=== PATIENT | female | born 1975 | race Caucasian/White ===

== ENCOUNTER 2020-12-05 09:26 | Emergency (ER) | payer OTHER ==
[2020-12-05] MEDS ORDERED: CYCLOBENZAPRINE10 MG PO (13:13)
[2020-12-05] MEDS ORDERED: NAPROSYN500 MG PO (13:13)
== END 2020-12-05 13:36 | disposition home or self-care (01) ==
LOC: ER1 09:26
DX: S20.212A Contusion of left front wall of thorax, initial encounter (principal); S00.83XA Contusion of other part of head, initial encounter; S60.512A Abrasion of left hand, initial encounter; M19.90 Unspecified osteoarthritis, unspecified site; W01.0XXA Fall on same level from slipping, tripping and stumbling without subsequent striking against object, initial encounter; Y92.410 Unspecified street and highway as the place of occurrence of the external cause; Z23 Encounter for immunization
CPT/HCPCS: 70480; 71111; 73130; 90471; 90715; 96372; 99284; J1885